=== PATIENT | female | born 1990 | race Caucasian/White ===

== ENCOUNTER 2019-04-30 20:16 | Emergency (ER) | payer OTHER ==
[2019-04-30] MEDS ORDERED: SULFAMETH-TMP DS STARTER PACK 2 TAB BTL PO STA (22:39)
[2019-04-30] MEDS ORDERED: KETOROLAC 30 MG/ML 1 ML VIAL IM STA (22:39)
[2019-04-30] MEDS ORDERED: LIDOCAINE 1% INJ 10MG/ML (20 ML MDV) SQ ONE (22:39)
[2019-04-30 23:06] LABS: Appearance,Urine Clear (Clear); Bilirubin,Urine Negative (Negative); Blood,Urine Negative (Negative); Color,Urine Colorless; Glucose,Urine (UA) Negative (Negative); Ketones,Urine Negative (Negative); Leukocyte Esterase,Urine Negative (Negative); Nitrite,Urine Negative (Negative); Protein,Urine Negative (Negative); Specific Gravity,Urine 1.005 (1.001-1.035); Urobilinogen,Urine <2.0 mg/dL (<2.0)
[2019-05-01 00:05] VITALS: BP 98/62; PULSE 80; RESP 18; TEMP 97.9
--- NOTE | 2019-05-01 00:06 | ED ---
Skin/Abscess/FB HPI - General Chief complaint: Skin/Abscess/Foreign Body Stated complaint: Abcess on arm, heart palpations, back pain Time Seen by Provider: 04/30/19 22:03 Source: patient Mode of arrival: ambulatory - History of Present Illness Initial comments: 28-year-old female patient presents to the emergency department today for evaluation of abscess to the right forearm, low back pain, and pounding heart. Patient states that symptoms have been present for the last few days. States she is currently receiving care at [facility] for heroin addiction. States that she has abscess to the right forearm. States that she did try to and inject heroin to the area but missed. Patient has felt feverish and chilled. States sometimes she can feel her heart beating in her chest. She denies any fever today. Denies nausea or vomiting. Patient states that she is having some pain in her low back and around her kidney area. She denies any known injury. The states the pain has been progressively worsening over the last 2 weeks. She denies any hematuria, dysuria, urinary frequency, urinary urgency. Denies any abnormal vaginal bleeding or discharge. Denies chance of . Patient denies any recent rash, shortness breath, chest pain, abdominal pain, diarrhea, constipation, numbness, tingling, dizziness, weakness, visual changes, or any other complaints. - Related Data Home Medications Medication Instructions Recorded Confirmed Acetaminophen [Tylenol] 650 mg PO Q4H PRN 04/30/19 04/30/19 Calcium/Magnesium 1000mg/500mg 1 - 2 tab PO TID PRN 04/30/19 04/30/19 Chlorpheniramine Maleate 4 mg PO Q4H PRN 04/30/19 04/30/19 [Chlor-Trimeton] Ibuprofen [Motrin] 600 mg PO Q6H PRN 04/30/19 04/30/19 Mag Hydrox/Al Hydrox/Simeth 30 ml PO Q4H PRN 04/30/19 04/30/19 [Maalox] Multivitamins, Thera [Multivitamin 1 tab PO DAILY 04/30/19 04/30/19 (formulary)] Ondansetron HCl [Zofran] 8 mg PO Q6H PRN 04/30/19 04/30/19 Sulfamethox-Tmp 800-160Mg [Bactrim 1 tab PO BID@0600,1800 04/30/19 04/30/19 DS 800-160 mg] Thiamine [Vitamin B-1] 100 mg PO DAILY 04/30/19 04/30/19 Zofran(2mg/Ml) 4 mg IM Q6H PRN 04/30/19 04/30/19 busPIRone HCl [Buspar] 10 mg PO TID PRN 04/30/19 04/30/19 traZODone HCL 50 - 150 mg PO HS 04/30/19 04/30/19 Previous Rx's Medication Instructions Recorded Naproxen [EC-Naprosyn] 500 mg PO BID PRN #30 tablet. 05/01/19 Sulfamethoxazole/Trimethoprim 2 each PO BID #40 tablet 05/01/19 [Bactrim DS 800-160 mg] Allergies Allergy/AdvReac Type Severity Reaction Status Date / Time No Known Allergies Allergy Verified 04/30/19 21:57 Review of Systems ROS Statement: Those systems with pertinent positive or pertinent negative responses have been documented in the HPI. ROS Other: All systems not noted in ROS Statement are negative. Past Medical History Past Medical History: No Reported History History of Any Multi-Drug Resistant Organisms: None Reported Past Surgical History: Appendectomy Past Psychological History: No Psychological Hx Reported Smoking Status: Current every day smoker Past Alcohol Use History: None Reported Past Drug Use History: Cocaine, Heroin General Exam General appearance: alert, in no apparent distress, other (This is a well- developed, well-nourished adult female patient in no acute distress. Vital signs upon presentation are temperature 98.4F, pulse 85, respirations 16, blood pressure 133/89, pulse ox 100% on room air.) Eye exam: Present: normal appearance, PERRL, EOMI. Absent: scleral icterus, conjunctival injection, periorbital swelling ENT exam: Present: normal exam, normal oropharynx, mucous membranes moist Respiratory exam: Present: normal lung sounds bilaterally. Absent: respiratory distress, wheezes, rales, rhonchi, stridor Cardiovascular Exam: Present: regular rate, normal rhythm, normal heart sounds. Absent: systolic murmur, diastolic murmur, rubs, gallop, clicks GI/Abdominal exam: Present: soft, normal bowel sounds. Absent: distended, tenderness, guarding, rebound, rigid Back exam: Present: normal inspection, CVA tenderness (R), CVA tenderness (L). Absent: paraspinal tenderness, vertebral tenderness Neurological exam: Present: alert, oriented X3, CN II-XII intact Psychiatric exam: Present: normal affect, normal mood Skin exam: Present: warm, dry, intact, normal color. Absent: rash Course Vital Signs 04/30/19 05/01/19 21:24 00:04 Temperature 98.4 F 97.9 F Pulse Rate 85 80 Respiratory 16 18 Rate Blood Pressure 133/89 98/62 O2 Sat by Pulse 100 97 Oximetry Medical Decision Making - Medical Decision Making 28-year-old female patient presents to emergency department today for evaluation of low back pain, abscess to the right arm, and pounding heart. Physical examination reveals a 2 cm x 2 cm abscess to the right forearm. There is no surrounding erythema. Area is fluctuant. This was incised and drained. Culture obtained. Abdomen soft and nontender. Patient did have bilateral mild CVA tenderness. No paraspinal or spinal tenderness. She is currently afebrile normal vital signs. Urinalysis obtained and showed no acute in infection. She'll be discharged home with prescription for Bactrim we will do 2 pills twice daily for 10 days. Most She'll be instructed to follow-up with her primary care physician for recheck in 1-2 days. Return parameters were discussed in detail. She verbalizes understanding and agrees with this plan. Case was discussed with my attending physician Dr. Cueva who agreed with my impression and plan. - Lab Data Lab Results 04/30/19 Range/Units 22:42 Urine Color Colorless Urine Appearance Clear (Clear) Urine pH 7.0 (5.0-8.0) Ur Specific [place] 1.005 (1.001-1.035) Urine Protein Negative (Negative) Urine Glucose (UA) Negative (Negative) Urine Ketones Negative (Negative) Urine Blood Negative (Negative) Urine Nitrite Negative (Negative) Urine Bilirubin Negative (Negative) Urine Urobilinogen <2.0 (<2.0) mg/dL Ur Leukocyte Esterase Negative (Negative) Disposition Clinical Impression: Abscess of right forearm, Low back pain Disposition: HOME SELF-CARE Condition: Good Instructions (If sedation given, give patient instructions): Abscess Incision and Drainage (ED), Back Pain (ED) Additional Instructions: Take medications as directed. Complete antibiotic prescription and full. Follow-up through primary care physician for recheck as soon as possible. Return to the emergency department for any new, worsening, or concerning symptoms. Prescriptions: Sulfamethoxazole/Trimethoprim [Bactrim DS 800-160 mg] 2 each PO BID #40 tablet Naproxen [EC-Naprosyn] 500 mg PO BID PRN #[address] tablet[address] GARCIA Reason: Pain Is patient prescribed a controlled substance at d/c from ED?: No Referrals: None,Stated [Primary Care Provider] - 1-2 days Time of Disposition: 00:06
--- NOTE | 2019-05-01 02:50 | ED ---
Medical Decision Making - Lab Data Lab Results 04/30/19 Range/Units 22:42 Urine Color Colorless Urine Appearance Clear (Clear) Urine pH 7.0 (5.0-8.0) Ur Specific [place] 1.005 (1.001-1.035) Urine Protein Negative (Negative) Urine Glucose (UA) Negative (Negative) Urine Ketones Negative (Negative) Urine Blood Negative (Negative) Urine Nitrite Negative (Negative) Urine Bilirubin Negative (Negative) Urine Urobilinogen <2.0 (<2.0) mg/dL Ur Leukocyte Esterase Negative (Negative) Disposition Clinical Impression: Abscess of right forearm, Low back pain Disposition: HOME SELF-CARE Condition: Good Instructions (If sedation given, give patient instructions): Abscess Incision and Drainage (ED), Back Pain (ED) Additional Instructions: Take medications as directed. Complete antibiotic prescription and full. Follow-up through primary care physician for recheck as soon as possible. Return to the emergency department for any new, worsening, or concerning symptoms. Prescriptions: Sulfamethoxazole/Trimethoprim [Bactrim DS 800-160 mg] 2 each PO BID #40 tablet Naproxen [EC-Naprosyn] 500 mg PO BID PRN #[address] GARCIA Reason: Pain Is patient prescribed a controlled substance at d/c from ED?: No Referrals: None,Stated [Primary Care Provider] - 1-2 days Procedures - Incision & Drainage Consent Obtained: verbal consent Indication: Abscess Site: upper extremity (Right forearm) Size (cm): 2 Anesthetic Used: lidocaine 1% Amount (mLs): 8 I&D Cleaning Method: Betadine Scalpel Used: #11 I&D Drainage Obtained: Pus, Blood Culture Obtained?: Yes Patient Tolerated Procedure: well, no complications
== END 2019-05-01 00:23 | disposition home or self-care (01) ==
LOC: EC 20:16
DX: L02.413 Cutaneous abscess of right upper limb (principal); M54.5 Low back pain; R00.2 Palpitations; F17.200 Nicotine dependence, unspecified, uncomplicated; Z79.899 Other long term (current) drug therapy
CPT/HCPCS: 81003; 87070; 87205; 99283; 10060; 96372; J2001; J1885

== ENCOUNTER 2020-08-24 18:55 | Emergency (ER) | payer OTHER ==
[2020-08-24 19:02] VITALS: TEMP 98
[2020-08-24] MEDS ORDERED: SODIUM CHLORIDE 0.9% 500 ML 500 ML IV ONE (19:24)
[2020-08-24] MEDS ORDERED: HYDROmorphone 0.5 MG/0.5 ML SYRINGE IVP STA (19:25)
[2020-08-24] MEDS ORDERED: diphenhydrAMINE 50 MG/ML 1 ML VIAL IVP STA (19:25)
[2020-08-24] MEDS ORDERED: ONDANSETRON 4 MG/2 ML VIAL IVP STA (19:25)
[2020-08-24] MEDS ORDERED: KETOROLAC 15 MG/ML 1 ML VIAL IVP STA (19:25)
--- NOTE | 2020-08-24 19:35 | ED ---
Headache HPI - General Chief Complaint: Headache Stated Complaint: Headache Time Seen by Provider: 08/24/20 19:03 Mode of arrival: ambulatory Limitations: no limitations - History of Present Illness Initial Comments: 29-year-old female presenting today for chief complaint of 5 days of headache. She states the headache came on gradually approximate 5-6 days ago. She states that there was no sudden onset of headache and she states this is not the worst headache of her life. She states that she had a previous episode where she had a much worse headache (a few years ago) but just state home and it went away she states today she did not go to work secondary to headache and figure that she would need a work note bus when she came to the emergency department. Patient states that she does have some sensitivity to light she denies any fevers, upper respiratory symptoms, neck stiffness denies she denies any head injury or vomiting nausea she denies any sensation deficits or weakness of the upper or lower extremities she denies any speech changes visual changes or loss she denies diplopia. Patient denies recent cocaine use. Pt states she did smoke some crack taking 3 hits yesterday in attempt to make the headache better she states it did not work. Remaining ROS (-). Upon arrival pt pleasant, no distress. - Related Data Home Medications Medication Instructions Recorded Confirmed Ibuprofen [Motrin Ib] 600 mg PO Q8H PRN 08/24/20 08/24/20 Allergies Allergy/AdvReac Type Severity Reaction Status Date / Time No Known Allergies Allergy Verified 08/24/20 20:15 Review of Systems ROS Statement: Those systems with pertinent positive or pertinent negative responses have been documented in the HPI. ROS Other: All systems not noted in ROS Statement are negative. Past Medical History Past Medical History: No Reported History History of Any Multi-Drug Resistant Organisms: None Reported Past Surgical History: Appendectomy Past Psychological History: Anxiety, Bipolar, Depression Smoking Status: Current every day smoker Past Alcohol Use History: None Reported Past Drug Use History: Cocaine, Heroin General Exam - General Exam Comments Initial Comments: General: The patient is awake and alert, in no distress Eye: +3 mm pupils are equal, round and reactive to light, extra-ocular movements are intact. No nystagmus. There is normal conjunctiva bilaterally. No signs of icterus. Ears, nose, mouth and throat: There are moist mucous membranes and no oral lesions. Neck: The neck is supple, there is no tenderness or JVD. Cardiovascular: There is a regular rate and rhythm. No murmur, rub or gallop is appreciated. Respiratory: Lungs are clear to auscultation, respirations are non-labored, breath sounds are equal. No wheezes, stridor, rales, or rhonchi. Gastrointestinal: Soft, non-distended, non-tender abdomen without masses or organomegaly noted. There is no rebound or guarding present. Musculoskeletal: Normal ROM, no tenderness. Strength 5/5. Sensation intact. Radial and DP pulses equal bilaterally 2+. Neurological: A&O x 3. CN II-XII intact, memory intact to immediately, intermediate and buttermaker continuous churn recall. Able to follow simple verbal. Able to name a common object (badge/flashlight). High quality, labial (pa) and lingual (la) speech. Low quality posterior pharynx/larynx (ga) voice sounds. Able to express general knowledge (days in a week). No hemineglect or inattention noted. Finger agnosia (-) and spatially oriented (identified L index finger touched R shoulder with L index finger).Light touch and temperature sensation present over the face, chest, abdomen, back, UE bilaterally, and LE bilaterally. Able to localize point during point localization b/l and extinction. No visible bulk atrophy, hypertrophy, fasciculations, or myoclonus of the UE or LE b/l. Full PROM in UE and LE b/l. Bilateral muscle strength 5/5 for the following muscles: deltoid, biceps, triceps, brachioradialis, wrist extensors/flexor, hip flexor, hip abductors/adductors, hamstrings, quadriceps, feet dorsiflexors/plantar flexors. Finger to nose, finger to the examiners finger, and heel to craft coordinated and accurate b/l. Coordinated and even demonstration of hand flip, finger to thumb, and toe tap b/l. (-) Babinski. +2 brachioradialis, triceps, patellar, and Achilles DTR b/l. (-) primitive reflexes. Gait is coordinated and even in str chris. (-) Romberg. (-) pronator drift. No nuchal rigidity. (-) Brudzinskis and Kernig signs. Skin: Skin is warm and dry and no rashes or lesions are noted. Psychiatric: Cooperative, appropriate mood & affect, normal judgment. Limitations: no limitations Course Vital Signs 08/24/20 08/24/20 08/24/20 18:59 20:09 20:47 Temperature 98.0 F Pulse Rate 67 58 L 56 L Respiratory 18 16 16 Rate Blood Pressure 115/76 110/50 100/51 O2 Sat by Pulse 97 99 100 Oximetry Medical Decision Making - Medical Decision Making 29-year-old female presenting for headache. Patient denies vomiting features such as fevers, CA, IVDU (admits to smoking, no IV use within the last few months), denies being worst headahce of her life, head injury, neck stiffness or sudden onset. Normal neurological exam. Discussed CT scan pt refused stating she only would like treatment and work note. Patient given a migraine cocktail of dilaudid, toradol, zofran and benadryl-on re-evaluation pt stating hse had improvement and would like to go home. Patient case discussed with Dr. Lawrence pt discharged appearing well. Disposition Clinical Impression: Headache Disposition: HOME SELF-CARE Condition: Good Additional Instructions: Please use medication as discussed. Please follow-up with family doctor in the next 2 days. Please return to emergency room if the symptoms increase or worsen or for any other concerns. Is patient prescribed a controlled substance at d/c from ED?: No Referrals: Lissa Garcia MD [Primary Care Provider] - 1-2 days Time of Disposition: 20:59
[2020-08-24] MEDS ORDERED: diphenhydrAMINE 25 MG CAP PO STA (20:05)
[2020-08-24] MEDS ORDERED: HYDROmorphone 0.5 MG/0.5 ML SYRINGE IM STA (20:05)
[2020-08-24] MEDS ORDERED: KETOROLAC 15 MG/ML 1 ML VIAL IM STA (20:06)
[2020-08-24] MEDS ORDERED: ONDANSETRON 4 MG TAB PO STA (20:06)
[2020-08-24 20:09] VITALS: RESP 16
[2020-08-24 21:08] VITALS: BP 106/58; PULSE 54
== END 2020-08-24 21:09 | disposition home or self-care (01) ==
LOC: EC 18:55
DX: R51.9 Headache, unspecified (principal); F17.200 Nicotine dependence, unspecified, uncomplicated
CPT/HCPCS: 99283; 96372 ×2; J1885; J1170

== ENCOUNTER 2020-09-24 11:01 | Emergency (ER) | payer OTHER ==
[2020-09-24 11:10] VITALS: BP 115/73; PULSE 63; RESP 18; TEMP 98.2
--- NOTE | 2020-09-24 11:33 | ED ---
ENT HPI - General Chief complaint: Dental/Oral Stated complaint: Swollen eye & face Time Seen by Provider: 09/24/20 11:06 Source: patient, RN notes reviewed Mode of arrival: ambulatory Limitations: no limitations - History of Present Illness Initial comments: 29-year-old female patient presents to the emergency room with right upper molar/dental pain for the past 2 days. Patient states was eating steak 2 days ago and felt crack. Has had increased pain and swelling to the face since Monday. Patient denies fevers, states pain is 6 out of 10. Has been taking Motrin and Tylenol [id number] and using Orajel with no relief. Patient also has a stye to left upper eyelid. No drainage or visual changes. MD complaint: tooth pain -: days(s) (2) Severity scale (1-10): 6 Quality: constant, other (throbbing) Consistency: constant Improves with: none Worsens with: eating Context- Dental: history of dental caries, poor dental care - Related Data Previous Rx's Medication Instructions Recorded Ibuprofen [Motrin] 600 mg PO Q8HR PRN #30 tab 09/24/20 Penicillin V Potassium [Pen Vee K] 500 mg PO QID #40 tablet 09/24/20 Allergies Allergy/AdvReac Type Severity Reaction Status Date / Time No Known Allergies Allergy Verified 09/24/20 11:31 Review of Systems ROS Statement: Those systems with pertinent positive or pertinent negative responses have been documented in the HPI. ROS Other: All systems not noted in ROS Statement are negative. Past Medical History Past Medical History: No Reported History History of Any Multi-Drug Resistant Organisms: None Reported Past Surgical History: Appendectomy Past Psychological History: Anxiety, Bipolar, Depression Smoking Status: Current every day smoker Past Alcohol Use History: None Reported Past Drug Use History: None Reported, Cocaine, Heroin General Exam - General Exam Comments Initial Comments: Fracture to right upper rear molar with other dental caries. No abscess noted, no lymphadenopathy and no fevers. Patient also has swelling/sty to the left upper eyelid. Denies blurred vision visual changes or discharge. Limitations: no limitations General appearance: alert, in no apparent distress Head exam: Present: atraumatic, normocephalic, normal inspection Eye exam: Present: other ENT exam: Present: normal exam, mucous membranes moist Respiratory exam: Present: normal lung sounds bilaterally. Absent: respiratory distress, wheezes, rales, rhonchi, stridor Cardiovascular Exam: Present: regular rate, normal heart sounds Neurological exam: Present: alert, oriented X3, CN II-XII intact Psychiatric exam: Present: normal affect, normal mood Course Vital Signs 09/24/20 11:03 Temperature 98.2 F Pulse Rate 63 Respiratory 18 Rate Blood Pressure 115/73 O2 Sat by Pulse 100 Oximetry Medical Decision Making - Medical Decision Making Patient denies nausea vomiting, fevers and has no lymphadenopathy. No dental abscess noted. Will prescribed antibiotics and pain meds and directed to follow with dentist in the next couple of days. for left eye stye pt directed to use warm compresses multiple times throughout the day. Return if worsening signs of infection, fever or abscess formation. Patient prescribed Pen-V K, Motrin, and given a Tylenol 3 starter pack in the ED. Disposition Clinical Impression: Pain, dental Disposition: HOME SELF-CARE Condition: Good Instructions (If sedation given, give patient instructions): Toothache (ED) Additional Instructions: Take antibiotics as prescribed and pain medication is needed. Follow-up with dentist within the next couple of days. Warm moist compresses 4 times a day to left eye stye. Prescriptions: Ibuprofen [Motrin] 600 mg PO Q8HR PRN #30 tab PRN Reason: Pain Penicillin V Potassium [Pen Vee K] 500 mg PO QID #40 tablet Is patient prescribed a controlled substance at d/c from ED?: No When asked, does pt state using other controlled substances?: No Referrals: Lissa Garcia MD [Primary Care Provider] - 1-2 days Time of Disposition: 11:40
[2020-09-24] MEDS ORDERED: ACET/COD 300 MG/30 MG STARTER PACK 6 TAB BTL PO STA (11:37)
== END 2020-09-24 12:03 | disposition home or self-care (01) ==
LOC: EC 11:01
DX: H00.014 Hordeolum externum left upper eyelid (principal); K08.89 Other specified disorders of teeth and supporting structures; F17.200 Nicotine dependence, unspecified, uncomplicated
CPT/HCPCS: 99283

== ENCOUNTER 2020-10-10 10:58 | Emergency (ER) | payer OTHER ==
[2020-10-10 11:19] VITALS: BP 133/79; PULSE 80; RESP 18; TEMP 98.3
--- NOTE | 2020-10-10 12:01 | ED ---
General Adult HPI - General Chief complaint: Dental/Oral Stated complaint: Revisit- Dental/Oral Source: patient Mode of arrival: ambulatory Limitations: no limitations - History of Present Illness Initial comments: 29-year-old female presents to the emergency room for a chief complaint of dental pain. Patient states she had this a few weeks ago but it resolved. She states she never picked up her antibiotic. She did call a dentist and has an appointment in a few weeks. Patient states that the pain came back again. States it is on the posterior aspect of her right lower jaw. States it radiates up to her upper jaw. Patient has not had any fevers. No shortness of breath or difficulty swallowing. No neck stiffness.Patient has no other complaints at this time including shortness of breath, chest pain, abdominal pain, nausea or vomiting, headache, or visual changes. - Related Data Previous Rx's Medication Instructions Recorded Ibuprofen [Motrin] 600 mg PO Q8HR PRN #30 tab 09/24/20 Penicillin V Potassium [Pen Vee K] 500 mg PO QID #40 tablet 09/24/20 Ibuprofen [Motrin] 600 mg PO Q6HR PRN #20 tab 10/10/20 Penicillin V Potassium [Pen Vee K] 500 mg PO Q6H 10 Days #40 tablet 10/10/20 Allergies Allergy/AdvReac Type Severity Reaction Status Date / Time No Known Allergies Allergy Verified 10/10/20 11:19 Review of Systems ROS Statement: Those systems with pertinent positive or pertinent negative responses have been documented in the HPI. ROS Other: All systems not noted in ROS Statement are negative. Past Medical History Past Medical History: No Reported History History of Any Multi-Drug Resistant Organisms: None Reported Past Surgical History: Appendectomy Past Psychological History: Anxiety, Bipolar, Depression Smoking Status: Current every day smoker Past Alcohol Use History: None Reported Past Drug Use History: Cocaine, Heroin General Exam Limitations: no limitations General appearance: alert, in no apparent distress Head exam: Present: atraumatic, normocephalic, normal inspection Eye exam: Present: normal appearance, PERRL, EOMI. Absent: scleral icterus, conjunctival injection, periorbital swelling ENT exam: Present: normal exam, mucous membranes moist, TM's normal bilaterally, normal external ear exam. Absent: normal oropharynx (Patient has very poor dentition. Patient is a fractured right lower posterior molar. No abscess noted. No sublingual edema.) Neck exam: Present: normal inspection, full ROM. Absent: tenderness, meningismus, lymphadenopathy Respiratory exam: Present: normal lung sounds bilaterally. Absent: respiratory distress, wheezes, rales, rhonchi, stridor Cardiovascular Exam: Present: regular rate, normal rhythm, normal heart sounds. Absent: systolic murmur, diastolic murmur, rubs, gallop, clicks GI/Abdominal exam: Present: soft, normal bowel sounds. Absent: distended, tenderness, guarding, rebound, rigid Course Vital Signs 10/10/20 11:16 Temperature 98.3 F Pulse Rate 80 Respiratory 18 Rate Blood Pressure 133/79 O2 Sat by Pulse 98 Oximetry Medical Decision Making - Medical Decision Making No identifiable abscess at this time. Patient will be treated with penicillin. Discussed return parameters. Otherwise she will follow up with dentist. Disposition Clinical Impression: Pain, dental Disposition: HOME SELF-CARE Condition: Good Instructions (If sedation given, give patient instructions): Dental Abscess (ED) Additional Instructions: Please take medications as directed. Please follow-up with your dentist as soon as possible. Return to the emergency room for any worsening symptoms. Prescriptions: Ibuprofen [Motrin] 600 mg PO Q6HR PRN #20 tab PRN Reason: Pain Penicillin V Potassium [Pen Vee K] 500 mg PO Q6H 10 Days #40 tablet Is patient prescribed a controlled substance at d/c from ED?: No Referrals: Lissa Garcia MD [Primary Care Provider] - 1-2 days Time of Disposition: 11:59
[2020-10-10] MEDS ORDERED: PENICILLIN VK 500MG STARTER 4 TAB BTL PO STA (12:03)
[2020-10-10] MEDS ORDERED: IBUPROFEN 600 MG TAB PO STA (12:03)
== END 2020-10-10 12:22 | disposition home or self-care (01) ==
LOC: EC 10:58
DX: K08.89 Other specified disorders of teeth and supporting structures (principal); F17.200 Nicotine dependence, unspecified, uncomplicated; F32.9 Major depressive disorder, single episode, unspecified; F41.9 Anxiety disorder, unspecified
CPT/HCPCS: 99283

== ENCOUNTER 2021-01-28 12:03 | Emergency (ER) | payer OTHER ==
[2021-01-28] MEDS ORDERED: PENICILLIN VK 500MG STARTER 4 TAB BTL PO STA (12:58)
[2021-01-28] MEDS ORDERED: ACET/COD 300 MG/30 MG STARTER PACK 6 TAB BTL PO STA (13:03)
[2021-01-28] MEDS ORDERED: PENICILLIN G BENZATHINE 1,200,000 UNIT/2 ML SYRINGE IM STA (13:03)
--- NOTE | 2021-01-28 13:04 | ED ---
General Adult HPI - General Chief complaint: Dental/Oral Stated complaint: dental abscess Time Seen by Provider: 01/28/21 12:21 Source: patient, RN notes reviewed Mode of arrival: ambulatory Limitations: no limitations - History of Present Illness Initial comments: 30-year-old female with a past medical history of asthma presents to the emergency room for a chief complaint of dental pain. Patient states she has had dental pain and left-sided facial swelling for the past 3-4 days. She called her dentist today who stated that there was nothing they could do if she had an active infection so sent her to the emergency room. Patient states she does have a cracked tooth that she believes is the cause. Patient denies fevers.Patient has no other complaints at this time including shortness of breath, chest pain, abdominal pain, nausea or vomiting, headache, or visual changes. - Related Data Previous Rx's Medication Instructions Recorded Ibuprofen [Motrin] 600 mg PO Q6HR PRN #20 tab 01/28/21 Penicillin V Potassium [Pen Vee K] 500 mg PO Q6H 10 Days #40 tablet 01/28/21 Allergies Allergy/AdvReac Type Severity Reaction Status Date / Time No Known Allergies Allergy Verified 01/28/21 12:56 Review of Systems ROS Statement: Those systems with pertinent positive or pertinent negative responses have been documented in the HPI. ROS Other: All systems not noted in ROS Statement are negative. Past Medical History Past Medical History: Asthma History of Any Multi-Drug Resistant Organisms: None Reported Past Surgical History: Appendectomy Past Psychological History: Anxiety, Bipolar, Depression Smoking Status: Current every day smoker Past Alcohol Use History: None Reported Past Drug Use History: Cocaine, Heroin, Marijuana General Exam Limitations: no limitations General appearance: alert, in no apparent distress Head exam: Present: atraumatic, normocephalic, normal inspection Eye exam: Present: PERRL, EOMI, periorbital swelling (Left eye does have mild inferior periorbital edema. This is soft and nontender.). Absent: scleral icterus, conjunctival injection ENT exam: Present: mucous membranes moist. Absent: normal oropharynx (poor dentition noted. Fractured teeth 12 and 13. Tenderness to these teeth. There is no abscess evident.) Expanded Mouth exam: Present: tongue normal. Absent: drooling, trismus, muffled voice, tongue elevation Teeth exam: Present: fractured tooth # Neck exam: Present: normal inspection, full ROM. Absent: tenderness, meningismus, lymphadenopathy Respiratory exam: Present: normal lung sounds bilaterally. Absent: respiratory distress, wheezes, rales, rhonchi, stridor Cardiovascular Exam: Present: regular rate, normal rhythm, normal heart sounds Course Vital Signs 01/28/21 12:06 Temperature 97.8 F Pulse Rate 80 Respiratory 18 Rate Blood Pressure 114/68 O2 Sat by Pulse 99 Oximetry Medical Decision Making - Medical Decision Making Patient does not want IV medications. Patient will be given IM penicillin. She will be put on oral penicillin outpatient. She will follow up with her doctor and dentist. She will return here for any worsening symptoms. Disposition Clinical Impression: Dental infection Disposition: HOME SELF-CARE Condition: Good Instructions (If sedation given, give patient instructions): Toothache (ED) Additional Instructions: Please take medications as directed. Do not drive or operative machinery while taking Tylenol 3. Follow up with your doctor in one to 2 days. Return to the emergency room for any worsening symptoms. Prescriptions: Ibuprofen [Motrin] 600 mg PO Q6HR PRN #20 tab PRN Reason: Pain Penicillin V Potassium [Pen Vee K] 500 mg PO Q6H 10 Days #40 tablet Is patient prescribed a controlled substance at d/c from ED?: No Referrals: Lissa Garcia MD [Primary Care Provider] - 1-2 days Time of Disposition: 13:03
[2021-01-28 14:07] VITALS: BP 113/73; PULSE 69; RESP 16; TEMP 98.7
== END 2021-01-28 14:08 | disposition home or self-care (01) ==
LOC: EC 12:03
DX: K04.7 Periapical abscess without sinus (principal); J45.909 Unspecified asthma, uncomplicated; F17.200 Nicotine dependence, unspecified, uncomplicated; F12.90 Cannabis use, unspecified, uncomplicated; F14.90 Cocaine use, unspecified, uncomplicated; F11.90 Opioid use, unspecified, uncomplicated
CPT/HCPCS: 96372; 99282; J0561